=== PATIENT | female | born 1990 | race Caucasian/White ===

== ENCOUNTER → 2016-11-06 | Outpatient (CLI) | payer MEDICAID | LOC: HPND 08:31 | DX: O35.0XX0 Maternal care for (suspected) central nervous system malformation in fetus, not applicable or unspecified (principal); O34.10 Maternal care for benign tumor of corpus uteri, unspecified trimester; Z3A.00 Weeks of gestation of pregnancy not specified | CPT/HCPCS: 76811 ==

== ENCOUNTER → 2016-12-10 | Outpatient (CLI) | payer MEDICAID | LOC: HPND 08:12 | DX: O35.1XX0 Maternal care for (suspected) chromosomal abnormality in fetus, not applicable or unspecified (principal); O99.212 Obesity complicating pregnancy, second trimester | CPT/HCPCS: 76816 ==